=== PATIENT | female | born 1945 | race Caucasian/White ===

== ENCOUNTER 2024-10-17 13:21 | Day surgery (SDC) | payer MEDICARE ==
[~2024-10-17 13:21] MED LIST: LIDOCAINE 1% (10MG/ML) FOR IV START INTRADERMA PRN
[2024-10-17] MEDS: IV FLUID CONTINUATION 1,000 ML IV ONE (14:00)
[2024-10-17 14:18] VITALS: TEMP 98.3
[2024-10-17] MEDS: LACTATED RINGERS 1,000 ML IV SCH (14:20)
[2024-10-17] MEDS ORDERED: PROPOFOL 10 MG/ML 20 ML VIAL IV ONE (15:13)
--- NOTE | 2024-10-17 15:33 | P.OP ---
Date of Procedure: 10/17/24 Preoperative Diagnosis: Screening colonoscopy Postoperative Diagnosis: Incomplete colonoscopy Tortuous colon Procedure(s) Performed: Colonoscopy Anesthesia: MAC Surgeon: Jah De Jesus Pathology: none sent Condition: stable Disposition: PACU Description of Procedure: The. Digital rectal exam was performed. This revealed no abnormalities. The flexible colonoscope was then placed patient anus and passed throughout the colon. The colonoscope would not be passed beyond the sigmoid colon secondary to tortuosity of the colon. Several times were made to maneuver the colonoscope however this was not feasible. The scope was withdrawn. The visualized sigmoid colon and rectum appeared normal. Scope withdrawn the patient. Patient was scheduled for a barium enema.
[2024-10-17 15:54] VITALS: BP 141/84; PULSE 66; RESP 16
== END 2024-10-17 16:15 | disposition home or self-care (01) ==
LOC: ORWHC2ENDO 13:21
PROVIDERS: ATTEND Surgery
DX: Z12.11 Encounter for screening for malignant neoplasm of colon (principal); K63.89 Other specified diseases of intestine; E78.5 Hyperlipidemia, unspecified; E07.9 Disorder of thyroid, unspecified; F17.210 Nicotine dependence, cigarettes, uncomplicated; Z86.718 Personal history of other venous thrombosis and embolism; Z79.890 Hormone replacement therapy; Z79.899 Other long term (current) drug therapy
CPT/HCPCS: 45330; J2704

== ENCOUNTER → 2024-10-18 | Outpatient (CLI) | payer MEDICARE ==
--- NOTE | 2024-10-19 06:42 | FL ---
EXAMINATION TYPE: FL barium enema DATE OF EXAM: 10/18/2024 COMPARISON: None. CLINICAL INDICATION: Female, 79 years old with history of Incomplete Colonoscopy; PHH, weight loss. TECHNIQUE: A double contrast barium enema study is performed. A total of 90 seconds of fluoroscopic time was utilized during procedure and 28 images obtained. Total dose area product (DAP) in uGy*m?, mGy*cm? (or similar): N/P. FINDINGS: Fire Tender view of the abdomen shows overall non-obstructive bowel gas pattern. Colon is successfully filled to the cecum. Evaluation is suboptimal due to marked redundancy of the c olon. No evidence of any obstructing or constricting lesion throughout the colon. Limited assessment for polyps. Some distal colonic diverticula are present. During real-time scanning a right infrahilar dense nodule is identified but presumably benign as was present on 2014 x-ray. Appendix and terminal ileum are not refluxed. IMPRESSION: Suboptimal study. Successful filling to the cecum without obstructing or constricting ne oplasm. [facility], , 10/19/2024 6:39 AM
== END | disposition home or self-care (01) ==
LOC: RADFLMAIN 10:43
PROVIDERS: ATTEND Surgery
DX: Z53.9 Procedure and treatment not carried out, unspecified reason (principal)
CPT/HCPCS: 74270